=== PATIENT | male | born 1970 | race Two or more races ===

== ENCOUNTER 2021-09-09 12:54 | Emergency (ER) | payer OTHER ==
[~2021-09-09] VITALS: Ht 182.9 cm; Wt 108.9 kg
== END 2021-09-09 15:43 | disposition home or self-care (01) ==
LOC: ER 12:54
DX: M12.561 Traumatic arthropathy, right knee (principal); T14.90XS Injury, unspecified, sequela; W18.30XS Fall on same level, unspecified, sequela